=== PATIENT | female | born 1945 | race Hispanic/Latino ===

== ENCOUNTER → 2020-06-23 | Outpatient (CLI) | payer OTHER | END | disposition home or self-care (01) | LOC: RAH 14:48 | PROVIDERS: ATTEND Family Medicine | DX: Z13.6 Encounter for screening for cardiovascular disorders (principal); I25.10 Atherosclerotic heart disease of native coronary artery without angina pectoris; R59.9 Enlarged lymph nodes, unspecified | CPT/HCPCS: 75571 ==

== ENCOUNTER → 2020-08-12 | Outpatient (CLI) | payer MEDICARE ==
[~2020-08-12] VITALS: Ht 160 cm; Wt 73.5 kg
[~2020-08-12] MED LIST: REGADENOSON 0.4 MG/5 ML PF SYG IVP SCH
== END | disposition home or self-care (01) ==
LOC: SHCH 08:31
PROVIDERS: ATTEND Internal Medicine Cardiovascular Disease
DX: I25.10 Atherosclerotic heart disease of native coronary artery without angina pectoris (principal)
CPT/HCPCS: 78452; 93017; 96374; A9500 ×2

== ENCOUNTER 2023-04-05 02:18 | Observation (INO) | payer MEDICARE ==
[2023-04-05] VITALS (23 sets, daily range): BP systolic 115–133; BP diastolic 73–83; PULSE 73–92; RESP 12–24; O2SAT 96
[~2023-04-05] VITALS: Ht 160 cm; Wt 70.3 kg
[2023-04-05] MEDS ORDERED: AMIODARONE 150MG VIAL ONE (02:28)
[2023-04-05] MEDS ORDERED: DILTIAZEM 25MG INJ IVP ONE ×3 (02:29→03:00)
[2023-04-05] MEDS ORDERED: DILTIAZEM 125 MG/25 ML INJ IV ONE (02:32)
[2023-04-05] MEDS ORDERED: AMIODARONE 900MG VIAL IV ONE (02:37)
[2023-04-05] MEDS ORDERED: HEPARIN 25,000 UNITS/250ML D5W 250 ML IV STA (02:38)
[2023-04-05] MEDS ORDERED: DILTIAZEM 125MG+100 ML NS 125 ML IV ONE (02:38)
[2023-04-05] MEDS ORDERED: AMIODARONE 900MG VIAL 540 MG in DEXTROSE 5%-WATER 300 ML IV STA (02:39)
[2023-04-05 02:51] LABS: BASOPHILS # (AUTO) 0.05 K/uL (0.00-0.20); BASOPHILS % (AUTO) 0.7 % (0.0-5.0); EOSINOPHILS # (AUTO) 0.32 K/uL (0.00-0.70); EOSINOPHILS % (AUTO) 4.2 % (0.0-8.0); HEMATOCRIT 42.5 % (36-48); IMMATURE GRANULOCYTE ABSOLUTE 0.02 K/uL (0-1); LYMPHOCYTES # (AUTO) 3.3 K/uL (1.0-4.8); LYMPHOCYTES % (AUTO) 42.3 % (21.0-51.0); MEAN CORPUSCULAR HEMOGLOBIN 30.4 pg (27.0-33.0); MEAN CORPUSCULAR HGB CONC 32.9 g/dL (32.0-36.0); MEAN CORPUSCULAR VOLUME 92.2 fL (79-99); MONOCYTES # (AUTO) 0.6 K/uL (0.1-1.0); MONOCYTES % (AUTO) 7.8 % (3.0-13.0); NEUTROPHILS # (AUTO) 3.5 K/uL (1.8-7.7); NEUTROPHILS % (AUTO) 44.7 % (40.0-77.0); PLATELET COUNT (AUTO) 346 K/uL (130-400); RED BLOOD CELL COUNT(AUTO) 4.61 MIL/uL (4.00-5.50); RED CELL DISTRIBUTION WIDTH 13.2 % (11.0-15.5); WHITE BLOOD COUNT (AUTO) 7.7 K/uL (4.8-10.8)
[2023-04-05 03:00] LABS: CREATININE 0.8 mg/dL (0.5-1.5); POTASSIUM 3.4 mmol/L (3.5-5.1)
[2023-04-05] MEDS ORDERED: AMIODARONE 150MG VIAL 150 MG in DEXTROSE 5%-WATER 50 ML IV ONE (03:00)
[2023-04-05] MEDS ORDERED: DILTIAZEM 125 MG/25 ML INJ 125 MG in 0.9%NACL 100ML 100 ML IV SCH (03:00)
[2023-04-05] MEDS ORDERED: AMIODARONE 900MG VIAL 900 MG in DEXTROSE 5%-WATER 500 ML IV SCH (03:00)
[2023-04-05] MEDS ORDERED: AMIODARONE 900MG VIAL 360 MG in DEXTROSE 5%-WATER 200 ML IV SCH (03:00)
[2023-04-05] MEDS ORDERED: AMIODARONE 150MG VIAL 150 MG in DEXTROSE 5%-WATER 100 ML IV SCH ×4 (03:00)
[2023-04-05 03:12] LABS: ALBUMIN 3.8 g/dL (3.5-5.0); BILIRUBIN,TOTAL 0.2 mg/dL (0.2-1.0); THYROID STIMULATING HORMONE 5.42 uIU/mL (0.36-3.74); TOTAL PROTEIN, SERUM 7.8 g/dL (6.0-8.3)
[2023-04-05 03:16] LABS: B-TYPE NATRIURETIC PEPTIDE 95 pg/mL (0-100)
[2023-04-05 04:18] LABS: INR < 0.93 (0.85-1.15); PROTHROMBIN TIME 10.3 SEC (9.6-11.6)
[2023-04-05 04:20] LABS: PARTIAL THROMBOPLASTIN TIME 25.4 SEC (26.3-35.5)
[2023-04-05] MEDS ORDERED: HEPARIN 5,000 UNIT VIAL IV SCH (04:30)
[2023-04-05] MEDS ORDERED: ONDANSETRON 4MG INJ IV PRN (05:00)
[2023-04-05] MEDS ORDERED: ACETAMINOPHEN 325 MG TAB PO PRN ×2 (05:00)
[2023-04-05 06:58] LABS: BASOPHILS # (AUTO) 0.06 K/uL (0.00-0.20); BASOPHILS % (AUTO) 0.9 % (0.0-5.0); EOSINOPHILS # (AUTO) 0.25 K/uL (0.00-0.70); EOSINOPHILS % (AUTO) 3.9 % (0.0-8.0); HEMATOCRIT 34.7 % (36-48); IMMATURE GRANULOCYTE ABSOLUTE 0.03 K/uL (0-1); LYMPHOCYTES # (AUTO) 1.6 K/uL (1.0-4.8); LYMPHOCYTES % (AUTO) 25.1 % (21.0-51.0); MEAN CORPUSCULAR HEMOGLOBIN 29.8 pg (27.0-33.0); MEAN CORPUSCULAR HGB CONC 32.9 g/dL (32.0-36.0); MEAN CORPUSCULAR VOLUME 90.8 fL (79-99); MONOCYTES # (AUTO) 0.6 K/uL (0.1-1.0); MONOCYTES % (AUTO) 8.8 % (3.0-13.0); NEUTROPHILS # (AUTO) 3.9 K/uL (1.8-7.7); NEUTROPHILS % (AUTO) 60.8 % (40.0-77.0); PLATELET COUNT (AUTO) 280 K/uL (130-400); RED BLOOD CELL COUNT(AUTO) 3.82 MIL/uL (4.00-5.50); RED CELL DISTRIBUTION WIDTH 13.3 % (11.0-15.5); WHITE BLOOD COUNT (AUTO) 6.5 K/uL (4.8-10.8)
[2023-04-05] MEDS ORDERED: ASPI-1197 PO (07:05)
[2023-04-05 07:16] LABS: ALBUMIN 2.8 g/dL (3.5-5.0); BILIRUBIN,TOTAL 0.3 mg/dL (0.2-1.0); CREATININE 0.7 mg/dL (0.5-1.5); POTASSIUM 3.6 mmol/L (3.5-5.1)
[2023-04-05 07:23] LABS: HEMOGLOBIN A1C 5.2 % (4.0-6.0)
[2023-04-05 07:39] LABS: APPEARANCE,URINE CLEAR (CLEAR); BILIRUBIN,URINE NEGATIVE (NEGATIVE); COLOR,URINE COLORLESS (YELLOW); GLUCOSE, URINE (UA) NEGATIVE (NEGATIVE); KETONES,URINE NEGATIVE (NEGATIVE); LEUKOCYTE ESTERASE ,URINE NEGATIVE Leu/uL (NEGATIVE); NITRATE,URINE NEGATIVE (NEGATIVE); PH,URINE 6.5 (5.0-8.0); PROTEIN,URINE NEGATIVE (NEGATIVE); UROBILINOGEN,URINE 0.2 mg/dL (0.2-1.0)
[2023-04-05 07:49] LABS: ADD UA MICROSCOPIC YES
[2023-04-05 07:51] LABS: WBC,URINE 0-1 /HPF (0-1)
[2023-04-05] MEDS ORDERED: FAMOTIDINE 20MG TAB PO SCH (09:00)
[2023-04-05] MEDS ORDERED: DOCU-116 PO (10:01)
[2023-04-05] MEDS ORDERED: AMIODARONE 200 MG TABLET PO SCH (11:30)
[2023-04-05] MEDS ORDERED: POTASSIUM CHLORIDE 10MEQ SR TAB PO SCH (11:30)
[2023-04-05] MEDS ORDERED: APIXABAN 5 MG TABLET PO SCH (21:00)
[2023-04-13] MEDS ORDERED: AMIODARONE 200 MG TABLET PO SCH (09:00)
== END 2023-04-05 15:00 | disposition home or self-care (01) ==
LOC: EDH 02:18 → EDHIP 04:48 → INTOOBSV 04:48 → 2CV 08:04
PROVIDERS: ADMIT Internal Medicine; ATTEND Internal Medicine
DX: I48.20 Chronic atrial fibrillation, unspecified (principal); I48.0 Paroxysmal atrial fibrillation; E03.9 Hypothyroidism, unspecified; E78.5 Hyperlipidemia, unspecified; R73.9 Hyperglycemia, unspecified; E78.00 Pure hypercholesterolemia, unspecified; Z96.642 Presence of left artificial hip joint; Z79.899 Other long term (current) drug therapy
CPT/HCPCS: 96376; 96365; 96375; 80053 ×2; 96366; 83036; 84443; 82550; 83735; 84484; 80061; 83880; 85025 ×2; 85610; 85730; 81001; 36415; 71045; 93306; 93356; 99291; 93005 ×2; G0378 ×2; J3490 ×3; J7060; J1644 ×2; J0282 ×3

== ENCOUNTER → 2023-05-30 | Outpatient (CLI) | payer MEDICARE ==
[~2023-05-30] MED LIST changes: +DOCU-116 PO; -REGADENOSON 0.4 MG/5 ML PF SYG IVP SCH
[2023-05-30 12:20] LABS: POTASSIUM 3.6 mmol/L (3.5-5.1)
== END | disposition home or self-care (01) ==
LOC: LAB 08:29
PROVIDERS: ATTEND Internal Medicine Cardiovascular Disease
DX: I25.10 Atherosclerotic heart disease of native coronary artery without angina pectoris (principal)
CPT/HCPCS: 36415; 80048

== ENCOUNTER 2024-08-30 20:31 | Emergency (ER) | payer MEDICARE ==
[~2024-08-30] VITALS: Ht 160 cm; Wt 70.4 kg
--- NOTE | 2024-08-30 20:45 | EKG ---
[facility] Test Date: 2024-08-30 Test Time: 20:42:08 Pat Name: ALDAIR FUENTES Department: ED Room: Gender: F Renal Medicine Physician: [id number] : 1945 Requested By: EVELIO TERRY Order Number: [id number] Reading MD: James Quintanilla Measurements Intervals [place] Rate: 85 P: -1 MA: 115 QRS: 20 QRSD: 85 T: 49 QT: 386 QTc: 459 Interpretive Statements Sinus rhythm Compared to ECG 04/05/2023 03:27:52 No significant changes Electronically Signed On 09-01-2024 17:29:44 CDT by James Quintanilla Please click the below link to view image of tracing.
[2024-08-30 20:53] LABS: BASOPHILS # (AUTO) 0.05 K/uL (0.00-0.20); BASOPHILS % (AUTO) 0.8 % (0.0-5.0); EOSINOPHILS # (AUTO) 0.35 K/uL (0.00-0.70); EOSINOPHILS % (AUTO) 5.9 % (0.0-8.0); HEMATOCRIT 38.8 % (36-48); IMMATURE GRANULOCYTE ABSOLUTE 0.02 K/uL (0-1); LYMPHOCYTES # (AUTO) 1.5 K/uL (1.0-4.8); LYMPHOCYTES % (AUTO) 25.7 % (21.0-51.0); MEAN CORPUSCULAR HEMOGLOBIN 30.8 pg (27.0-33.0); MEAN CORPUSCULAR HGB CONC 33.5 g/dL (32.0-36.0); MEAN CORPUSCULAR VOLUME 91.9 fL (79-99); MONOCYTES # (AUTO) 0.7 K/uL (0.1-1.0); MONOCYTES % (AUTO) 11.7 % (3.0-13.0); NEUTROPHILS # (AUTO) 3.3 K/uL (1.8-7.7); NEUTROPHILS % (AUTO) 55.6 % (40.0-77.0); PLATELET COUNT (AUTO) 220 K/uL (130-400); RED BLOOD CELL COUNT(AUTO) 4.22 MIL/uL (4.00-5.50); RED CELL DISTRIBUTION WIDTH 13.5 % (11.0-15.5); WHITE BLOOD COUNT (AUTO) 5.9 K/uL (4.8-10.8)
[2024-08-30 21:02] LABS: CREATININE 0.9 mg/dL (0.5-1.0); POTASSIUM 3.8 mmol/L (3.5-5.1)
[2024-08-30] MEDS ORDERED: IOHEXOL-350 50ML VIAL IV ONE (21:10)
--- NOTE | 2024-08-30 21:28 | HMCIMG ---
Exam Type: CT NECK SOFT TISS W/CONTRAST Clinical Information: dysphagia Comparison: None CT Dose Index (CTDI): 7.98 mGy Dose Length Product (DLP): 178.1 total mGy-cm PROTOCOL: Photography is done at 3.8 millimeter thick intervals for the head. The study was performed in the axial plane, and reconstructed and photographed in sagittal and coronal planes as well. Findings: There is extensive left side and the root of the neck lymphadenopathy. Largest lymph node is within the left lower neck measuring 50 x 23 mm. No fluid collections or masses are identified. The vascular, muscular, as well as subcutaneous structures are preserved. No significant paranasal sinus pathology is seen. The base of the skull is unremarkable. There are no significant upper airway abnormalities. IMPRESSION: Extensive lymphadenopathy particularly involving the left side of the neck. Lymphomatous process suspected. This study was performed using dose reduction techniques to include automated exposure control and/or adjustment of the mA and/or kV according to patient size.
--- NOTE | 2024-08-30 21:34 | ERN ---
General Chief Complaint: Other Problems Stated Complaint: THROAT SWELLING Time Seen by MD: 20:35 Source: patient History of Present Illness Initial Comments Patient is a 78-year-old female coming in to be evaluated for dysphagia. Patient states that she has been evaluated by her PCP for throat swelling several days ago she is pending a CT of the neck by PCP. She states that today she could not stand it so decided to come in for further evaluation. Allergies: Coded Allergies: No Known Drug Allergies (Unverified Allergy, Unknown, 08/11/20) Fgmxsaa-YIP-SgN Reductase Inhibitor (Unverified Allergy, Unknown, 04/05/23) Home Meds Reported Medications Docusate Sodium (Colace) 100 Mg Capsule, 100 MG PO DAILY, CAP 04/05/23 Past Medical History Past Medical History: High Cholesterol Past Surgical History: Other Surgical History Other: LEFT HIP REPLACEMENT Family History Family History: HTN Social History Social History: Negative, Lives with family ROS Dictation CONSTITUTIONAL: No chills, no fever, no weakness, no diaphoresis, no malaise. HEAD/FACE: No signs of trauma. EENT: No eye pain, no blurred vision, no tearing, no double vision, no ear pain, no ear discharge, no nose pain, no nasal congestion, no throat pain, no throat swelling, no mouth pain. RESPIRATORY: No cough, no orthopnea, no SOB, no stridor, no wheezing. CARDIOVASCULAR: No chest pain, no edema, no palpitations, no syncope. GASTROINTESTINAL/ABDOMINAL: No abdominal pain, no constipation, no diarrhea, no nausea, no vomiting. GENITOURINARY: No abnormal discharge, no dysuria, no frequent urination, no hematuria. No complaints of pain in the genitals. MUSCULOSKELETAL: No back pain, no gout, no joint pain, no joint swelling, no muscle pain, no muscle stiffness, no neck pain. INTEGUMENTARY: No change in color, no change in hair/nails, no dryness, no lesion, no lumps, no rash. NEUROLOGICAL/PSYCH: No anxiety, not depressed, no emotional problem, no he adache, no numbness, no pre-existing deficit, no history of seizures, no tremors, no weakness. HEMATOLOGIC/LYMPHATIC: Not anemic, no history of blood clots, no apparent bleeding, no bruising, glands not swollen. All Systems Negative, Except as Noted. Physical Exam Physical Exam Dictation VITAL SIGNS: Reviewed. GENERAL APPEARANCE: Alert, oriented x3, no acute distress, obese. HEAD AND FACE: Non-traumatic. EYES: PERRL, pink conjunctivas, eyelid no trauma, anterior chamber clear. EARS: Pinnas intact and no signs of trauma or erythema. Ear canals clear and no discharge. TMs no erythema. NOSE: No discharge, no bleeding. OROPHARYNX: Mouth normal, teeth no caries, tongue pink. Pharynx clear, no erythema. Tonsils no exudates, no abscesses noted. Mucous membrane moist. NECK: Supple, non-tender, no thyromegaly, no masses, no JVD, no bruits. BREAST: Deferred. CHEST: No tenderness, no crepitus, no paradoxical movement, no retractions. LUNGS: Clear, well-ventilated, symmetric, no rales, no wheezing, no rhonchi, no stridor, good breath sounds bilaterally. HEART: Regular rate, regular rhythm, no murmur, no gallops. VASCULAR: No peripheral edema. ABDOMEN: Soft, positive bowel sounds, nondistended, no guarding, nontender, no rebound, no masses no hepatomegaly, no splenomegaly, no Medina's sign, no hernias. RECTAL: Deferred. GENITAL: Deferred. NEUROLOGICAL: Normal speech, gross motor function intact, gross sensory function intact. MUSCULOSKELETAL: Neck nontender, full range of motion, back nontender, full range of motion. EXTREMITIES: Nontender, full range of motion. SKIN: Color pink, dry, no turgor, no rash, no lacerations, no abrasions, no contusions. LYMPHATICS: Deferred. Results Laboratory and Microbiology Lab and Micro Result Laboratory Tests Test 08/30/24 20:43 White Blood Count 5.9 K/uL (4.8-10.8) Red Blood Count 4.22 MIL/uL (4.00-5.50) Hemoglobin 13.0 g/dL (12.0-16.0) Hematocrit 38.8 % (36-48) Mean Corpuscular Volume 91.9 fL (79-99) Mean Corpuscular Hemoglobin 30.8 pg (27.0-33.0) Mean Corpuscular Hemoglobin Concent 33.5 g/dL (32.0-36.0) Red Cell Distribution Width 13.5 % (11.0-15.5) Platelet Count 220 K/uL (130-400) Mean Platelet Volume 9.4 fL (7.5-10.5) Immature Granulocyte % (Auto) 0.3 % (0-1) Neutrophils (%) (Auto) 55.6 % (40.0-77.0) Lymphocytes (%) (Auto) 25.7 % (21.0-51.0) Monocytes (%) (Auto) 11.7 % (3.0-13.0) Eosinophils (%) (Auto) 5.9 % (0.0-8.0) Basophils (%) (Auto) 0.8 % (0.0-5.0) Neutrophils # (Auto) 3.3 K/uL (1.8-7.7) Lymphocytes # (Auto) 1.5 K/uL (1.0-4.8) Monocytes # (Auto) 0.7 K/uL (0.1-1.0) Eosinophils # (Auto) 0.35 K/uL (0.00-0.70) Basophils # (Auto) 0.05 K/uL (0.00-0.20) Absolute Immature Granulocyte (auto 0.02 K/uL (0-1) Nucleated Red Blood Cells 0.0 % (0.0-0.19) Sodium Level 146 mmol/L (136-145) H Potassium Level 3.8 mmol/L (3.5-5.1) Chloride Level 109 mmol/L (101-111) Carbon Dioxide Level 28 mmol/L (21-32) Blood Urea Nitrogen 17 mg/dL (7-18) Creatinine 0.9 mg/dL (0.5-1.0) Glomerular Filtration Rate Calc 65 mL/min (>90) Random Glucose 98 mg/dL (70-105) Total Calcium 9.1 mg/dL (8.5-10.1) Troponin I High Sensitivity 6 ng/L (4-50) Labs Reviewed?: Yes EKG/XRAY/US/CT/MRI EKG Comment 08/30/2024 time 8:42 p.m. Ventricular rate 85 Sinus rhythm [place] [address] wave elevation or depression X-RAY Comment [place] [id number] [place] [id number] IMAGING REPORT Signed PATIENT: ALDAIR FUENTES MR#: [id number] : 1945 SEX: F AGE: 78 LOCATION: [facility] ORDER 39 STATUS: REG ER REPORT#: [id number] SERVICE 38 REASON: dysphagia ORDERING PHYSICIAN: EVELIO TERRY MD PROCEDURE: NKSOFTI W - CT NECK SOFT TISS W/CONTRAST Exam Type: CT NECK SOFT TISS W/CONTRAST Clinical Information: dysphagia Comparison: None CT Dose Index (CTDI): 7.98 mGy Dose Length Product (DLP): 178.1 total mGy-cm PROTOCOL: Photography is done at 3.8 millimeter thick intervals for the head. The study was performed in the axial plane, and reconstructed and photographed in sagittal and coronal planes as well. Findings: There is extensive left side and the root of the neck lymphadenopathy. Largest lymph node is within the left lower neck measuring 50 x 23 mm. No fluid collections or masses are identified. The vascular, muscular, as well as subcutaneous structures are preserved. No significant paranasal sinus pathology is seen. The base of the skull is unremarkable. There are no significant upper airway abnormalities. IMPRESSION: Extensive lymphadenopathy particularly involving the left side of the neck. Lymphomatous process suspected. This study was performed using dose reduction techniques to include automated exposure control and/or adjustment of the mA and/or kV according to patient size. DICTATED BY: JAIMIE MCLAUGHLIN MD DATE: 08/30/242123 ELECTRONICALLY SIGNED BY: JAIMIE MCLAUGHLIN MD DATE: 08/30/242127 [facility] MDM: Differential diagnosis: Lymphadenopathy, dysphagia, Rationale: Tests considered and ordered secondary to shared decision making include: Previous outside records reviewed: Old ER visits. Risk of complication and/or morbidity or mortality of patient management: None Medications-Per medication reconciliation Patient is a 78-year-old female coming in to be evaluated for swelling or neck. CT disclose lymphadenopathy. Patient received some IV steroids she states that the symptoms improved significantly. Patient will be discharged in stable condition with a diagnosis of lymphadenopathy I did not advise her further workup to evaluate why she is having lymph node swelling , she agrees she will follow up with the PCP. ED Course Orders Procedure Category Date Status Time Cbc With Differential LAB 08/30/24 Complete 20:39 Basic Metabolic Panel LAB 08/30/24 Complete 20:39 Troponin I High LAB 08/30/24 Complete Sensitivity 20:39 12 Lead Ekg Tracing- EKG 08/30/24 Complete Technical 20:[address] T[address] CT 08/30/24 Resulted W/Contrast 20:39 Iohexol (Omnipaque) PHA 08/30/24 Complete 21:10 Methylprednisolone PHA 08/30/24 Complete Succ 125mg (Solu-Medr 22:00 Current Medications Medications (Trade) Dose Ordered Sig/Paul Route PRN Reason Start Time Stop Time Status Last Admin Dose Admin Iohexol (Omnipaque) 50 ml STK-MED ONCE IV 08/30/24 21:10 08/30/24 21:11 DC Methylprednisolone Sodium Succinate (Solu-medROL 125MG) 125 mg ONCE ONCE IVP 08/30/24 22:00 08/30/24 22:01 DC Vital Signs Date Time Temp Pulse Resp B/P (MAP) Pulse Ox O2 Delivery O2 Flow Rate FiO2 08/30/24 21:00 98.6 96 20 127/83 94 Room Air* 0 21 08/30/24 20:32 98.6 94 18 188/91 96 Room Air DX & DISP Disposition: Discharge Departure Impression: Primary Impression: Lymphadenopathy of head and neck Condition: Stable Scripts Amoxicillin (Amoxicillin) 500 Mg Capsule 1 CAP PO TID for 10 Days, #30 CAP 0 Refills Prov: EVELIO TERRY MD 08/30/24 Prednisolone (Prelone Soln) 15 Mg/5 Ml Soln 15 MG PO BID for 5 Days, #200 ML Prov: EVELIO TERRY MD 08/30/24 Additional Instructions: FOLLOW-UP WITH PRIMARY CARE PROVIDER IN 1 TO 2 DAYS. TAKE MEDICATIONS DIRECTED HERE IN THE EMERGENCY ROOM. OKAY TO CONTINUE HOME MEDICATIONS UNLESS OTHERWISE DISCUSSED DURING YOUR VISIT IN THE EMERGENCY ROOM TODAY. RETURN TO YOUR NEAREST EMERGENCY ROOM IF SYMPTOMS WORSEN OR IF THERE IS NO IMPROVEMENT. CALL 911 IF YOU NEED IMMEDIATE ASSISTANCE. TAKE TYLENOL [id number] NEEDED AND IF NO CONTRAINDICATIONS ARE PRESENT. INCREASE ORAL HYDRATION. A WOUND CULTURE OR URINE CULTURE WAS ORDERED HERE IN THE EMERGENCY ROOM DEPARTMENT PLEASE FOLLOW-UP WITH PRIMARY CARE PROVIDER AND ADVISE THEM TO GET REPEAT PORTS FROM OUR FACILITY. IF YOU HAD ANY ERIN WRAP/SPLINTS THAT WERE APPLIED HERE, PLEASE DO NOT REMOVE THEM UNTIL YOU SEE YOUR PRIMARY CARE OR SPECIALTY. Referrals: Referrals: REMIGIO SHANKAR MD (PCP) Time of Disposition: 22:20 EVELIO TERRY MD August 30, 2024 21:34
[2024-08-30] MEDS ORDERED: PRED15SO74 PO (22:22)
[2024-08-30] MEDS ORDERED: AMOX500C2 PO (22:23)
[2024-08-30] MEDS: Solu-medROL 125MG VIAL IVP ONE (23:04)
[2024-08-30 23:15] VITALS: BP 122/72; PULSE 86; RESP 18; TEMP 98.5; O2SAT 96
== END 2024-08-30 23:16 | disposition home or self-care (01) ==
LOC: EDH 20:31
DX: R59.0 Localized enlarged lymph nodes (principal); R13.10 Dysphagia, unspecified; E78.00 Pure hypercholesterolemia, unspecified; Z88.8 Allergy status to other drugs, medicaments and biological substances
CPT/HCPCS: 99285; 96374; 70491; 84484; 80048; 85025; 36415; 93005; J2919; Q9967

== ENCOUNTER → 2024-09-25 | Outpatient (CLI) | payer MEDICARE ==
[~2024-09-25] MED LIST changes: +AMOX500C2 PO; +PRED15SO74 PO
[2024-09-25 10:03] LABS: BASOPHILS # (AUTO) 0.04 K/uL (0.00-0.20); BASOPHILS % (AUTO) 0.9 % (0.0-5.0); EOSINOPHILS # (AUTO) 0.33 K/uL (0.00-0.70); EOSINOPHILS % (AUTO) 7.3 % (0.0-8.0); HEMATOCRIT 37.6 % (36-48); IMMATURE GRANULOCYTE ABSOLUTE 0.03 K/uL (0-1); LYMPHOCYTES # (AUTO) 0.7 K/uL (1.0-4.8); LYMPHOCYTES % (AUTO) 15.6 % (21.0-51.0); MEAN CORPUSCULAR HEMOGLOBIN 30.5 pg (27.0-33.0); MEAN CORPUSCULAR HGB CONC 33.8 g/dL (32.0-36.0); MEAN CORPUSCULAR VOLUME 90.2 fL (79-99); MONOCYTES # (AUTO) 0.6 K/uL (0.1-1.0); NEUTROPHILS # (AUTO) 2.8 K/uL (1.8-7.7); NEUTROPHILS % (AUTO) 62.5 % (40.0-77.0); PLATELET COUNT (AUTO) 372 K/uL (130-400); RED BLOOD CELL COUNT(AUTO) 4.17 MIL/uL (4.00-5.50); RED CELL DISTRIBUTION WIDTH 12.8 % (11.0-15.5); WHITE BLOOD COUNT (AUTO) 4.5 K/uL (4.8-10.8)
[2024-09-25 10:15] LABS: INR 1.02 (0.85-1.15); PROTHROMBIN TIME 10.8 SEC (9.6-11.6)
[2024-09-25 10:16] LABS: PARTIAL THROMBOPLASTIN TIME 24.8 SEC (26.3-35.5)
[2024-09-25 10:17] LABS: BILIRUBIN,TOTAL 0.3 mg/dL (0.2-1.0); CREATININE 0.9 mg/dL (0.5-1.0); POTASSIUM 4.3 mmol/L (3.5-5.1); TOTAL PROTEIN, SERUM 6.8 g/dL (6.0-8.3)
--- NOTE | 2024-09-25 11:45 | NUR ---
U/S GD LT NECK BX PROCEDURE PERFORMED BY DR Jasbir PIERRE. PUNCTURE SITE LT NECK AND PATIENT TOLERATED PROCEDURE WELL. SPECIMEN X 5 COLLECTED AND SENT TO LAB. END OF PROCEDURE AT 1110. BIOPSY NEEDLE REMOVED AND DRESSING APPLIED. NO BLEEDING NOTED. DISCHARGE INSTRUCTIONS GIVEN TO PATIENT AND VERBALIZED UNDERSTANDING. DISCHARGED VIA AMBULATION AT 1145. AO X3 WITH NO C/O PAIN.
--- NOTE | 2024-09-25 14:03 | HMCIMG ---
US BIOPSY LYMPHNODE HISTORY: No additional history given. COMPARISON: None TECHNIQUE: Informed consent was obtained. Risks and benefits were explained to the patient. A timeout was performed. Patient was prepped and draped in a sterile fashion. Local anesthetics was given as required. Under ultrasound guidance, left neck mass was localized. Ultrasound guidance core biopsy was performed with 18-gauge biopsy, question arrangement. FINDINGS: 5 core biopsy samples were obtained. Patient tolerated procedure without complication. Patient left the department in good condition. IMPRESSION: 1. Uncomplicated ultrasound guidance left neck mass biopsy.
== END | disposition home or self-care (01) ==
LOC: RAH 09:32
PROVIDERS: ATTEND Internal Medicine Hematology & Oncology
DX: R59.0 Localized enlarged lymph nodes (principal); C83.31 Diffuse large B-cell lymphoma, lymph nodes of head, face, and neck; I48.91 Unspecified atrial fibrillation; I51.9 Heart disease, unspecified; K21.9 Gastro-esophageal reflux disease without esophagitis; E78.5 Hyperlipidemia, unspecified; Z87.898 Personal history of other specified conditions; Z79.899 Other long term (current) drug therapy; Z79.01 Long term (current) use of anticoagulants; Z90.49 Acquired absence of other specified parts of digestive tract; Z90.89 Acquired absence of other organs; Z98.890 Other specified postprocedural states; Z96.642 Presence of left artificial hip joint; Z82.49 Family history of ischemic heart disease and other diseases of the circulatory system
CPT/HCPCS: 80053; 85025; 85610; 85730; 88184; 88185; 88377; 36415; 88305; 88323; 88342; 88360; 88365; 38505; 76942; 88188; 88341; A4215

== ENCOUNTER 2024-11-17 16:33 | Emergency (ER) | payer MEDICARE ==
[~2024-11-17] VITALS: Ht 152.4 cm; Wt 68.0 kg
[2024-11-17] MEDS: 0.9%NACL 1000ML 1,000 ML IV ONE (16:54)
--- NOTE | 2024-11-17 17:37 | HMCIMG ---
CLINICAL INFORMATION Palpitations COMPARISON Chest radiograph 04/05/2023 TECHNIQUE Frontal view chest. FINDINGS Lines and tubes: None Lungs: Clear. Pleura: Unremarkable. No effusion or pneumothorax. Cardiomediastinal Silhouette: Tortuous thoracic aorta, unchanged from prior radiograph. Bones: Normal for age. Soft Tissues: Normal. IMPRESSION No acute pulmonary findings. Tortuous thoracic aorta, unchanged from prior radiograph. /[place]
--- NOTE | 2024-11-17 17:40 | ERN ---
ED Note History of Present Illness Stated Complaint: AFIB, PALPITATIONS Chief Complaint: Palpitations Time Seen by MD: 16:35 Time Seen by Midlevel: 16:35 Dictation: 79-year-old female presents to the ED for evaluation of palpitations onset earlier today. Reports she has a history of AFib and has been taking her medication. Reports she took her blood pressure at home earlier today and had heart rate in the 100s. Denies chest pain, shortness of breath, abdominal pain, nausea, vomiting. Patient reports she has a history non-Hodgkin's lymphoma on chemo Allergies: Coded Allergies: No Known Drug Allergies (Unverified Allergy, Unknown, 08/11/20) Nvhwlwh-OGM-HdX Reductase Inhibitor (Unverified Allergy, Unknown, 04/05/23) Home Meds Active Scripts Amoxicillin (Amoxicillin) 500 Mg Capsule, 1 CAP PO TID for 10 Days, #30 CAP 0 Refills Prov:EVELIO TERRY MD 08/30/24 Prednisolone (Prelone Soln) 15 Mg/5 Ml Soln, 15 MG PO BID for 5 Days, #200 ML Prov:EVELIO TERRY MD 08/30/24 Reported Medications Docusate Sodium (Colace) 100 Mg Capsule, 100 MG PO DAILY, CAP 04/05/23 Past Medical History Past Medical History: A-Fib, Cancer, High Cholesterol, Hypertension Additional Past Medical Hx: NON HODGKINS LYMPHOMA Surgical History: Other Surgical History Other: LEFT HIP REPLACEMENT, EYES Family History: HTN Social History: Negative, Lives with family RN Note Reviewed/Agreed w/PFSH: Yes Review of System Dictation Constitutional: Negative for fever,chills, and weight loss Eyes: Negative for injury, pain,redness, and discharge ENT: Negative for injury,pain or swelling Cardiovascular: Negative for chest pain and edema Respiratory: Negative for shortness of breath, cough, and wheezing, Abdomen/GI: Negative for abdominal pain, nausea, vomiting, diarrhea, and constipation Back: Negative for injury and pain : Negative for injury, bleeding and discharge MS/Extremity: Negative for injury and deformity Skin: Negative for rash, and discoloration Neuro: Negative for headache, weakness, numbness, tingling, and seizure Psych: Negative for suicide ideation, homicidal ideation, and hallucinations Review of Systems: was completed Initial Vital Sign VS Vital Signs Date Time Temp Pulse Resp B/P (MAP) Pulse Ox O2 Delivery O2 Flow Rate FiO2 11/17/24 16:35 97.9 92 16 138/71 96 Room Air 0 11/17/24 17:04 21 Physical Exam Dictation General: awake, alert, NAD Head/Face: Normocephalic, atraumatic Eyes: PERRL, EOMI, vision at baseline ENT: oral cavity clear, TMs clear, no signs of infection Neck: Trachea midline, supple, no nuchal rigidity Cardiovascular: RRR, normal S1/S2, No MRGs, no JVD Respiratory: CTAB, no respiratory distress, No rales or wheezes Abdomen: Soft, non-tender, non-distended, normal bowel sounds, no guarding or rebound. Skin: Warm, dry, normal turgor, no rash MS/Extremity: Pulses equal, no cyanosis, neurovascular intact, FROM Neuro: COAx4, GCS 15, strength 5/5, CN 2-12 intact, normal cerebellar exam, normal gait, Psych: Normal behavior, mood, and affect normal Results (Laboratory/Radiology) Laboratory/Radiology Laboratory Tests Test 11/17/24 16:52 White Blood Count 1.1 K/uL (4.8-10.8) L Red Blood Count 4.00 MIL/uL (4.00-5.50) Hemoglobin 12.0 g/dL (12.0-16.0) Hematocrit 35.3 % (36-48) L Mean Corpuscular Volume 88.3 fL (79-99) Mean Corpuscular Hemoglobin 30.0 pg (27.0-33.0) Mean Corpuscular Hemoglobin Concent 34.0 g/dL (32.0-36.0) Red Cell Distribution Width 14.0 % (11.0-15.5) Platelet Count 121 K/uL (130-400) L Mean Platelet Volume 10.4 fL (7.5-10.5) Immature Granulocyte % (Auto) 4.6 % (0-1) H Neutrophils (%) (Auto) 55.5 % (40.0-77.0) Lymphocytes (%) (Auto) 35.2 % (21.0-51.0) Monocytes (%) (Auto) 0.9 % (3.0-13.0) L Eosinophils (%) (Auto) 1.9 % (0.0-8.0) Basophils (%) (Auto) 1.9 % (0.0-5.0) Neutrophils # (Auto) 0.6 K/uL (1.8-7.7) L Lymphocytes # (Auto) 0.4 K/uL (1.0-4.8) L Monocytes # (Auto) 0.0 K/uL (0.1-1.0) L Eosinophils # (Auto) 0.02 K/uL (0.00-0.70) Basophils # (Auto) 0.02 K/uL (0.00-0.20) Absolute Immature Granulocyte (auto 0.05 K/uL (0-1) Nucleated Red Blood Cells 0.0 % (0.0-0.19) Sodium Level 138 mmol/L (136-145) Potassium Level 3.3 mmol/L (3.5-5.1) L Chloride Level 104 mmol/L (101-111) Carbon Dioxide Level 29 mmol/L (21-32) Blood Urea Nitrogen 17 mg/dL (7-18) Creatinine 0.9 mg/dL (0.5-1.0) Glomerular Filtration Rate Calc 65 mL/min (>90) Random Glucose 106 mg/dL (70-105) H Total Calcium 8.3 mg/dL (8.5-10.1) L Magnesium Level 1.90 mg/dL (1.80-2.40) Troponin I High Sensitivity 18 ng/L (4-50) Thyroid Stimulating Hormone (TSH) 1.34 uIU/mL (0.36-3.74) # Labs Reviewed?: Yes EKG Comment: Date: 11/17/2024 Time:1636 Ventricular rate:134 NM interval:143 QRS duration:73 QT/QTc:296 EKG interpretation: Sinus tachycardia with a regular rate. No atrial fibrillation seen. No STEMI Reviewed by ED Attending ED Course ED Course Orders Procedure Category Date Status Time Cbc With Differential LAB 11/17/24 In Process 16:41 Chest 1vw RAD 11/17/24 Resulted 16:41 12 Lead Ekg Tracing- EKG 11/17/24 Logged Technical 16:41 Magnesium LAB 11/17/24 Complete 16:41 Troponin I High LAB 11/17/24 Complete Sensitivity 16:41 Urinalysis Profile LAB 11/17/24 Logged 16:41 Basic Metabolic Panel LAB 11/17/24 Complete 16:41 0.9%Nacl 1000ml (Ns PHA 11/17/24 Complete 1000ml) 17:00 Thyroid Stimulating LAB 11/17/24 Complete Hormone 16:52 Manual Differential LAB 11/17/24 In Process 16:52 Current Medications Medications (Trade) Dose Ordered Sig/Paul Route PRN Reason Start Time Stop Time Status Last Admin Dose Admin Sodium Chloride 1,000 ml @ 0 mls/hr ONCE ONCE IV 11/17/24 17:00 11/17/24 17:01 DC 11/17/24 16:54 Vital Signs Date Time Temp Pulse Resp B/P (MAP) Pulse Ox O2 Delivery O2 Flow Rate FiO2 11/17/24 17:04 98.2 105 18 114/71 98 Room Air* 0 21 11/17/24 16:35 97.9 92 16 138/71 96 Room Air 0 1800 Patient reports he is feeling better. HEART Score Response (Comments) Value History: Low suspicion (0) 0 EKG: Normal 0 Age: > 65yrs (+2) 2 Risk Factors: 3+ risk factors (+2) 2 Initial Troponin: Normal limit (0) 0 HEART Score Risk: Mod Risk for MACE (4-6) Total 4 Medical Decision Making MDM MDM: Differential diagnosis: Palpitations, thyroid storm, hypothyroidism, AMI, elect rolyte abnormality, acute dehydration Need for hospitalization: Patient does meet criteria for hospitalization. Need for emergency major/minor surgery: No I independently interpreted the test that were performed, results were reviewed by me and considered findings on radiology if ordered. Medical management and examination interpretation discussions were had by me with other qualified healthcare professionals as indicated for the patient's care. Patient came in with palpitations onset earlier today. Denies any recent illnesses, chest pain, shortness of breath. Reports history of AFib on medication. Initial EKG shows sinus tachycardia, no atrial fibrillation, no STEMI. Patient was started on bolus of NS. Negative troponin. TSH within normal limits. No electrolyte abnormalities. Leukopenia consistent with the patient's history of non-Hodgkin's lymphoma. No evidence of DVT or suspicion for PE with lack of shortness of breath, chest pain. Chest x-ray shows no acute finding. Patient reports feeling lab better with improvement of symptoms after bolus of NS. Patient is stable for discharge. Recommended follow up with PCP. Return precautions discussed with patient. Patient verbalized understanding, agree with plan, and all questions were answered at this time. DX & DISP Disposition: Discharge Departure Impression: Primary Impression: Palpitations Condition: Stable Additional Instructions: DISCHARGE HOME. REST. FOLLOW UP WITH PRIMARY CARE DRThais IN 24 HOURS. RETURN TO THE ER FOR ANY ACUTE CHANGE. PATIENT WAS ALSO ADVISED TO FOLLOW-UP WITH PRIMARY CARE PHYSICIAN IN 1 TO 2 DAYS FOR CONTINUED MONITORING. ALL INSTRUCTIONS WERE GIVEN TO LAYMANS TERM AND PATIENT AGREEABLE TO DISCHARGE AND PROPER FOLLOW-UP. Referrals: REMIGIO SHANKAR MD (PCP) I have reviewed the case, and I agree with, Diagnosis and Plan BERE MATHEWS Nov 17, 2024 17:40
[2024-11-17 18:16] LABS: IMMATURE GRANULOCYTE ABSOLUTE 0.05 K/uL (0-1); PLATELET COUNT (AUTO) 121 K/uL (130-400); RED BLOOD CELL COUNT(AUTO) 4.00 MIL/uL (4.00-5.50); RED CELL DISTRIBUTION WIDTH 14.0 % (11.0-15.5)
[2024-11-17 18:19] LABS: WHITE BLOOD COUNT (AUTO) 1.1 K/uL (4.8-10.8)
[2024-11-17 18:29] LABS: CREATININE 0.9 mg/dL (0.5-1.0); GLOMERULAR FILTR. RATE CALC 65.0 mL/min (>90); GLUCOSE,RANDOM 106.0 mg/dL (70-105); SODIUM SERUM 138.0 mmol/L (136-145); UREA NITROGEN, BLOOD 17.0 mg/dL (7-18)
[2024-11-17 19:18] VITALS: BP 102/56; PULSE 90; RESP 18; TEMP 98.3; O2SAT 98
[2024-11-17 19:48] LABS: EOSINOPHILS % (MANUAL) 1 % (1-6); LYMPHOCYTES % (MANUAL) 41 % (22-44); MAN.DIFF COMMENT-IMPRESSION MANUAL DIFFERENTIAL; SEGMENTED NEUTROPHILS % 58 % (40-70)
[2024-11-17 19:49] LABS: PLATELET MORPHOLOGY COMMENT SLIGHTLY DECREASED; WBC MORPHOLOGY HYPERSEGMENT NEUT 1+
[2024-11-17 19:55] LABS: NUCLEATED RED BLOOD CELLS 0.0 % (0.0-0.19)
--- NOTE | 2024-11-18 06:39 | EKG ---
[facility] Test Date: 2024-11-17 Test Time: 16:36:30 Pat Name: ALDAIR FUENTES Department: ED Room: Gender: F [employer]: [id number] : 1945 Requested By: BERE MATHEWS Order Number: [id number] Reading MD: Anay Quintanilla Measurements Intervals [place] Rate: 134 P: 26 [place]: 143 QRS: 52 QRSD: 73 T: 42 QT: 296 QTc: 442 Interpretive Statements Sinus tachycardia with intermittent run of a-fib Low voltage, precordial leads Compared to ECG 08/30/2024 20:42:08 Low QRS voltage now present Sinus rhythm no longer present Electronically Signed On 11-18-2024 11:21:19 CDT by Anay Quintanilla Please click the below link to view image of tracing.
== END 2024-11-17 19:21 | disposition home or self-care (01) ==
LOC: EDH 16:33
DX: R00.2 Palpitations (principal); E78.00 Pure hypercholesterolemia, unspecified; I10 Essential (primary) hypertension; I48.91 Unspecified atrial fibrillation; Z88.8 Allergy status to other drugs, medicaments and biological substances; Z79.899 Other long term (current) drug therapy
CPT/HCPCS: 99285; 96360; 71045; 84443; 83735; 84484; 80048; 85025; 36415; 93005; J7030

== ENCOUNTER 2025-03-07 08:27 | Emergency (ER) | payer MEDICARE ==
[~2025-03-07] VITALS: Ht 160 cm; Wt 60.8 kg
[2025-03-07 08:46] LABS: RAPID GROUP A STREP negative (NEGATIVE)
[2025-03-07 08:56] LABS: SARS-CoV-2, RNA, NAAT NEGATIVE SARS CoV-2 (NEGATIVE)
--- NOTE | 2025-03-07 09:29 | HMCIMG ---
EXAM: CR Chest, 1 View. CLINICAL HISTORY: cough COMPARISON: 11/17. FINDINGS: LUNGS: The lungs show no infiltrate or other acute finding. PLEURAL SPACES: No pleural effusion or pneumothorax. MEDIASTINUM: The cardiomediastinal silhouette is within normal limits. BONES: No aggressive appearing osseous lesion seen. MISCELLANEOUS: Right port. IMPRESSION: 1. No acute cardiopulmonary findings. 2. Right port in place. /[place]
--- NOTE | 2025-03-07 09:39 | ERN ---
General Chief Complaint: Sore Throat Stated Complaint: SORE THROAT Time Seen by MD: 08:28 Source: patient History of Present Illness Initial Comments PATIENT IS A 79-YEAR-OLD FEMALE COMING IN COMPLAINING OF URI SYMPTOMS. PER PATIENT SHE HAS BEEN HAVING A SORE THROAT AND A COUGH FOR TWO WEEKS. SHE STATES THE SORE THROAT WAS WORSE TWO DAYS AGO. NO FEVER NO CHILLS. Allergies: Coded Allergies: No Known Drug Allergies (Unverified Allergy, Unknown, 08/11/20) [id number] Reductase Inhibitor (Unverified Allergy, Unknown, 04/05/23) Home Meds Active Scripts Amoxicillin (Amoxicillin) 500 Mg Capsule, 1 CAP PO TID for 10 Days, #30 CAP 0 Refills Prov:EVELIO TERRY MD 08/30/24 Prednisolone (Prelone Soln) 15 Mg/5 Ml Soln, 15 MG PO BID for 5 Days, #200 ML Prov:EVELIO TERRY MD 08/30/24 Reported Medications Docusate Sodium (Colace) 100 Mg Capsule, 100 MG PO DAILY, CAP 04/05/23 Past Medical History Past Medical History: A-Fib, Cancer, High Cholesterol, Hypertension Medical History Other: NON HODGKINS LYMPHOMA Past Surgical History: Other Surgical History Other: LEFT HIP REPLACEMENT, EYES Family History Family History: HTN Social History Social History: Negative, Lives with family ROS Dictation CONSTITUTIONAL: NO CHILLS, NO FEVER, NO WEAKNESS, NO DIAPHORESIS, NO MALAISE. HEAD/FACE: NO SIGNS OF TRAUMA. EENT: NO EYE PAIN, NO BLURRED VISION, NO TEARING, NO DOUBLE VISION, NO EAR PAIN, NO EAR DISCHARGE, NO NOSE PAIN, NO NASAL CONGESTION, THROAT PAIN, NO THROAT SWELLING, NO MOUTH PAIN. RESPIRATORY: NO COUGH, NO ORTHOPNEA, NO SOB, NO STRIDOR, NO WHEEZING. CARDIOVASCULAR: NO CHEST PAIN, NO EDEMA, NO PALPITATIONS, NO SYNCOPE. GASTROINTESTINAL/ABDOMINAL: NO ABDOMINAL PAIN, NO CONSTIPATION, NO DIARRHEA, NO NAUSEA, NO VOMITING. GENITOURINARY: NO ABNORMAL DISCHARGE, NO DYSURIA, NO FREQUENT URINATION, NO HEMATURIA. NO COMPLAINTS OF PAIN IN THE GENITALS. MUSCULOSKELETAL: NO BACK PAIN, NO GOUT, NO JOINT PAIN, NO JOINT SWELLING, NO MUSCLE PAIN, NO MUSCLE STIFFNESS, NO NECK PAIN. INTEGUMENTARY: NO CHANGE IN COLOR, NO CHANGE IN HAIR/NAILS, NO DRYNESS, NO LESION, NO LUMPS, NO RASH. NEUROLOGICAL/PSYCH: NO ANXIETY, NOT DEPRESSED, NO EMOTIONAL PROBLEM, NO HEADACHE, NO NUMBNESS, NO PRE-EXISTING DEFICIT, NO HISTORY OF SEIZURES, NO TREMORS, NO WEAKNESS. HEMATOLOGIC/LYMPHATIC: NOT ANEMIC, NO HISTORY OF BLOOD CLOTS, NO APPARENT BLEEDING, NO BRUISING, GLANDS NOT SWOLLEN. ALL SYSTEMS NEGATIVE, EXCEPT NOTED. Physical Exam Physical Exam Dictation VITAL SIGNS: REVIEWED. GENERAL APPEARANCE: ALERT, ORIENTED X3, NO ACUTE DISTRESS, OBESE. HEAD AND FACE: NON-TRAUMATIC. EYES: PERRL, PINK CONJUNCTIVAS, EYELID NO TRAUMA, ANTERIOR CHAMBER CLEAR. EARS: PINNAS INTACT AND NO SIGNS OF TRAUMA OR ERYTHEMA. EAR CANALS CLEAR AND NO DISCHARGE. TMS NO ERYTHEMA. NOSE: NO DISCHARGE, NO BLEEDING. OROPHARYNX: MOUTH NORMAL, TEETH NO CARIES, TONGUE PINK. PHARYNX CLEAR, NO ERYTHEMA. TONSILS NO EXUDATES, NO ABSCESSES NOTED. MUCOUS MEMBRANE MOIST. NECK: SUPPLE, NON-TENDER, NO THYROMEGALY, NO MASSES, NO JVD, NO BRUITS. BREAST: DEFERRED. CHEST: NO TENDERNESS, NO CREPITUS, NO PARADOXICAL MOVEMENT, NO RETRACTIONS. LUNGS: CLEAR, WELL-VENTILATED, SYMMETRIC, NO RALES, NO WHEEZING, NO RHONCHI, NO STRIDOR, GOOD BREATH SOUNDS BILATERALLY. HEART: REGULAR RATE, REGULAR RHYTHM, NO MURMUR, NO GALLOPS. VASCULAR: NO PERIPHERAL EDEMA. ABDOMEN: SOFT, POSITIVE BOWEL SOUNDS, NONDISTENDED, NO GUARDING, NONTENDER, NO REBOUND, NO MASSES NO HEPATOMEGALY, NO SPLENOMEGALY, NO JOSÉ'S SIGN, NO HER NIAS. RECTAL: DEFERRED. GENITAL: DEFERRED. NEUROLOGICAL: NORMAL SPEECH, GROSS MOTOR FUNCTION INTACT, GROSS SENSORY FUNCTION INTACT. MUSCULOSKELETAL: NECK NONTENDER, FULL RANGE OF MOTION, BACK NONTENDER, FULL RANGE OF MOTION. EXTREMITIES: NONTENDER, FULL RANGE OF MOTION. SKIN: COLOR PINK, DRY, NO TURGOR, NO RASH, NO LACERATIONS, NO ABRASIONS, NO CONTUSIONS. LYMPHATICS: DEFERRED. Results Laboratory and Microbiology Lab and Micro Result Laboratory Tests Test 03/07/25 08:31 SARS-CoV-2, RNA, NAAT NEGATIVE SARS CoV-2 Group A Streptococcus Rapid negative (NEGATIVE) Labs Reviewed?: Yes MDM MDM: DIFFERENTIAL DIAGNOSIS: URI, STREP PHARYNGITIS, SINUSITIS, RATIONALE: TESTS CONSIDERED AND ORDERED SECONDARY TO SHARED DECISION MAKING INCLUDE: PREVIOUS OUTSIDE RECORDS REVIEWED: OLD ER VISITS. RISK OF COMPLICATION AND/OR MORBIDITY OR MORTALITY OF PATIENT MANAGEMENT: NONE MEDICATIONS-PER MEDICATION RECONCILIATION NEED FOR HOSPITALIZATION: PATIENT DOES NOT MEET CRITERIA FOR HOSPITALIZATION. NEED FOR EMERGENCY MAJOR/MINOR SURGERY: NO THERE ARE NO SOCIAL CONCERNS WITH THIS PATIENT. PATIENT IS A 79-YEAR-OLD FEMALE COMING IN COMPLAINING OF URI SYMPTOMS. SWABS AND CHEST X-RAY WERE NEGATIVE. PATIENT WILL BE DISCHARGED WITH A DIAGNOSIS SINUSITIS MEDICATION WILL BE PROVIDED SYMPTOMATIC RELIEF. I DID ADVISED HER APPROPRIATE FOLLOW UP WITH PCP FOR ONGOING ELEVATION OF THE PATIENT HAS BEEN STABLE THROUGHOUT ER VISIT. ED Course Orders Procedure Category Date Status Time Covid Rna Naat LAB 03/07/25 Complete 08:32 Rapid (Group A Strep) LAB 03/07/25 Complete 08:32 Chest 1vw RAD 03/07/25 Resulted 08:32 Guaifenesin-Codeine PHA 03/07/25 Complete Syrup 5ml (Robitussi 09:00 Current Medications Medications (Trade) Dose Ordered Sig/Paul Route PRN Reason Start Time Stop Time Status Last Admin Dose Admin Guaifenesin/ Codeine Phosphate (RobiTUSSin AC 5 ML SYRUP) 5 ml ONCE ONCE PO 03/07/25 09:00 03/07/25 09:01 DC 03/07/25 08:57 Vital Signs Date Time Temp Pulse Resp B/P (MAP) Pulse Ox O2 Delivery O2 Flow Rate FiO2 03/07/25 08:59 99.9 102 18 109/60 98 Room Air* 0 21 03/07/25 08:28 97.5 112 16 134/74 98 Room Air DX & DISP Disposition: Discharge Departure Impression: Primary Impression: Sinusitis Condition: Stable Scripts Fluticasone Propionate (Flonase Nasal Sholes) 50 Mcg/Actuation Sholes 2 SPRAY NS DAILY, #16 GM 0 Refills Prov: EVELIO TERRY MD 03/07/25 Amoxicillin (Amoxicillin) 500 Mg Capsule 1 CAP PO TID for 10 Days, #30 CAP 0 Refills Prov: EVELIO TERRY MD 03/07/25 Additional Instructions: FOLLOW-UP WITH PRIMARY CARE PROVIDER IN 1 TO 2 DAYS. TAKE MEDICATIONS DIRECTED HERE IN THE EMERGENCY ROOM. OKAY TO CONTINUE HOME MEDICATIONS UNLESS OTHERWISE DISCUSSED DURING YOUR VISIT IN THE EMERGENCY ROOM TODAY. RETURN TO YOUR NEAREST EMERGENCY ROOM IF SYMPTOMS WORSEN OR IF THERE IS NO IMPROVEMENT. CALL 911 IF YOU NEED IMMEDIATE ASSISTANCE. TAKE TYLENOL [id number] NEEDED AND IF NO CONTRAINDICATIONS ARE PRESENT. INCREASE ORAL HYDRATION. A WOUND CULTURE OR URINE CULTURE WAS ORDERED HERE IN THE EMERGENCY ROOM DEPARTMENT PLEASE FOLLOW-UP WITH PRIMARY CARE PROVIDER AND ADVISE THEM TO GET REPORTS FROM OUR FACILITY. IF YOU HAD ANY ERIN WRAP/SPLINTS THAT WERE APPLIED HERE, PLEASE DO NOT REMOVE THEM UNTIL YOU SEE YOUR PRIMARY CARE OR SPECIALTY. REFERRALS: Referrals: REMIGIO SHANKAR MD (PCP) GUSTAVO HENDRIX MD Time of Disposition: 09:42 EVELIO TERRY MD Mar 07, 2025 09:39
[2025-03-07] MEDS ORDERED: FLUT16H NS (09:43)
[2025-03-07 11:04] VITALS: BP 112/65; PULSE 92; RESP 18; TEMP 98.9; O2SAT 99
== END 2025-03-07 11:05 | disposition home or self-care (01) ==
LOC: EDH 08:27
DX: J32.9 Chronic sinusitis, unspecified (principal); E78.00 Pure hypercholesterolemia, unspecified; I10 Essential (primary) hypertension; I48.91 Unspecified atrial fibrillation; Z20.822 Contact with and (suspected) exposure to COVID-19; Z88.8 Allergy status to other drugs, medicaments and biological substances; Z95.828 Presence of other vascular implants and grafts; Z96.642 Presence of left artificial hip joint
CPT/HCPCS: 71045; 87635; 87880; 99284